=== PATIENT | male | born 1950 | race Caucasian/White ===

== ENCOUNTER → 2021-08-07 | Outpatient (CLI) | payer MEDICARE, OTHER ==
[~2021-08-07] MED LIST: ASPIR-LOW81 MG PO; AUGMENTIN 875-1 EACH PO; BIDIL TABLET1 EACH PO; DOCUSATE CALCI240 MG PO; ELIQUIS5 MG PO; HUMALOG MI100 UNIT/3 SQ; LIPITOR TAB 1010 MG PO; NEURONTIN300 MG PO; NITROSTAT 0.40.4 MG SL; NORVASC10 MG PO; TOPROL XL25 MG PO; TRESIBA FL100 UNIT/1 SQ
== END ==
LOC: HEART 5 14:47
DX: I50.22 Chronic systolic (congestive) heart failure (principal); I25.5 Ischemic cardiomyopathy; I08.3 Combined rheumatic disorders of mitral, aortic and tricuspid valves; I27.20 Pulmonary hypertension, unspecified; Z95.0 Presence of cardiac pacemaker
CPT/HCPCS: 93306

== ENCOUNTER → 2021-09-06 | Outpatient (CLI) | payer MEDICARE, OTHER | LOC: EXRD 10:51 | DX: E04.2 Nontoxic multinodular goiter (principal) | CPT/HCPCS: 76536 ==

== ENCOUNTER → 2021-12-14 | Outpatient (CLI) | payer MEDICARE, OTHER ==
[2021-12-14 12:15] LABS: HEMOGLOBIN 11.9 gm/dl (14.0-17.5); RED BLOOD COUNT 3.97 M/UL (4.20-5.50); WHITE BLOOD COUNT 8.6 K/UL (4.5-11.0)
[2021-12-15 08:13] LABS: CALCIUM, SERUM 9.8 mg/dL (8.6-10.2); CREATININE, SERUM 2.74 mg/dL (0.76-1.27); POTASSIUM, SERUM 4.5 mmol/L (3.5-5.2)
== END ==
LOC: LAB 11:23
PROVIDERS: Internal Medicine Cardiovascular Disease
DX: I11.9 Hypertensive heart disease without heart failure (principal); I25.5 Ischemic cardiomyopathy
CPT/HCPCS: 80048; 85025

== ENCOUNTER → 2021-12-14 | Outpatient (CLI) | payer MEDICARE, OTHER | LOC: EXRD 09:37 | DX: I73.9 Peripheral vascular disease, unspecified (principal); Z45.02 Encounter for adjustment and management of automatic implantable cardiac defibrillator; I25.5 Ischemic cardiomyopathy; I10 Essential (primary) hypertension | CPT/HCPCS: 71046; 93925 ==

== ENCOUNTER → 2021-12-18 | Outpatient (CLI) | payer MEDICARE, OTHER ==
[~2021-12-18] MED LIST changes: +CLINDAMYCIN HC300 MG PO; +FLOMAX0.4 MG PO; +HYDROCODON-ACE1 EAC4 PO; +LEVOFLOXACIN250 MG PO; +NORVASC5 MG PO; +NOVOLOG MI100 UNITS/ INJ; +PROSCAR 5 MG TAB5 MG PO
== END ==
LOC: CATH 06:47
DX: Z45.02 Encounter for adjustment and management of automatic implantable cardiac defibrillator (principal); I25.10 Atherosclerotic heart disease of native coronary artery without angina pectoris; I48.0 Paroxysmal atrial fibrillation; I50.22 Chronic systolic (congestive) heart failure; I25.5 Ischemic cardiomyopathy; I27.20 Pulmonary hypertension, unspecified; I08.3 Combined rheumatic disorders of mitral, aortic and tricuspid valves; I47.2 Ventricular tachycardia; E78.5 Hyperlipidemia, unspecified; E11.51 Type 2 diabetes mellitus with diabetic peripheral angiopathy without gangrene; I10 Essential (primary) hypertension; Z20.822 Contact with and (suspected) exposure to COVID-19; Z79.01 Long term (current) use of anticoagulants; Z79.82 Long term (current) use of aspirin; Z79.4 Long term (current) use of insulin; Z87.891 Personal history of nicotine dependence; Z95.1 Presence of aortocoronary bypass graft; Z95.2 Presence of prosthetic heart valve
CPT/HCPCS: 33240; 82962; 93641; 99152; 99153; C1721; J0360; J2250; J3010; J3370; J7040; J7050

== ENCOUNTER → 2022-08-19 | Outpatient (CLI) | payer MEDICARE, OTHER | LOC: EXRD 11:31 | DX: E04.2 Nontoxic multinodular goiter (principal) | CPT/HCPCS: 76536 ==